=== PATIENT | female | born 1990 | race African-American/Black ===

== ENCOUNTER 2018-08-22 15:33 | Outpatient (CLI) | payer MEDICAID ==
[~2018-08-22] VITALS: Ht 172.7 cm; Wt 147.3 kg
[2018-08-22 16:44] VITALS: BP 148/84; Ht 172.7 cm; Wt 147.3 kg
--- NOTE | 2018-08-22 20:01 | NUR ---
PATIENT TOLERATING BLOOD TRANSFUSION WITHOUT SIGNS OR SYMPTOMS OF REACTION TO LEFT AC PIV. REPORT CALLED TO [facility] AND PATIENT TRANSFERRED BY WHEELCHAIR TO ROOM [id number]
== END 2018-08-22 23:15 | disposition home or self-care (01) ==
LOC: D.OPS 15:33 → D.MS 20:21 → D.OPS 23:15
PROVIDERS: ATTEND Obstetrics & Gynecology
DX: D64.9 Anemia, unspecified (principal)